=== PATIENT | male | born 1945 | race African-American/Black ===

== ENCOUNTER 2022-02-17 11:03 | Inpatient (IN) | payer MEDICARE, MEDICAID ==
[2022-02-17] VITALS (18 sets, daily range): BP systolic 74–128; BP diastolic 50–84
[~2022-02-17] VITALS: Ht 172.7 cm; Wt 71.7 kg
[2022-02-17] MEDS ORDERED: SODIUM CHLORIDE 0.9% 1000ML BAG (SEPSIS BOLUS) IV ONE (11:45)
[2022-02-17 12:06] LABS: CHLORIDE 117 mEq/L (98-107)
[2022-02-17 12:19] LABS: EOSINOPHILS % 1.3 % (0.0-5.0); LYMPHOCYTES % 13.9 % (20.0-50.0); MEAN CORPUSCULAR HEMOGLOBIN 27.8 pg (28.0-32.0); MEAN CORPUSCULAR VOLUME 90.2 fL (80.0-94.0); NEUTROPHILS % 83.8 % (40.0-76.0); PLATELET 68 x1000/uL (130-400); RED BLOOD CELL COUNT 1.79 mill/uL (4.7-6.1); RED CELL DISTRIBUTION WIDTH 19.6 % (11.6-14.6)
[2022-02-17 12:29] LABS: HEMATOCRIT. 16.1 % (42.0-52.0)
[2022-02-17] MEDS ORDERED: NOREPINEPHRINE 8MG/250ML PMX 250 ML IV ONE ×2 (12:30→16:40)
[2022-02-17 12:41] LABS: CLARITY URINE CLOUDY (CLEAR); COLOR URINE DARK YELLOW (YELLOW); KETONES URINE NEGATIVE (NEGATIVE); LEUKOCYTE ESTERASE URINE 2+ (NEGATIVE); NITRITE URINE NEGATIVE (NEGATIVE); OCCULT BLOOD URINE TRACE (NEGATIVE); PH URINE 5.5 (4.5-8.0); PROTEIN URINE 1+ (NEGATIVE); SPECIFIC GRAVITY URINE 1.023 (1.005-1.030)
[2022-02-17] MEDS ORDERED: DEXTROSE 50% WATER 50ML SYRINGE IV NR (12:45)
[2022-02-17] MEDS ORDERED: VANCOMYCIN 1G PREMIX 200 ML IV ONE (12:45)
[2022-02-17] MEDS ORDERED: PIPERACILLIN/TAZ 3.375G PREMIX 50 ML IV ONE (12:45)
[2022-02-17] MEDS ORDERED: DEXTROSE 5% WATER 1,000 ML IV ONE (12:45)
[2022-02-17] MEDS ORDERED: POTASSIUM CHLORIDE INJ 40 MEQ in DEXT 5% WATER 250 ML IV ONE (14:30)
[2022-02-17] MEDS ORDERED: DEXTROSE 50% WATER 50ML SYRINGE IV PRN ×2 (15:15→23:00)
[2022-02-17 15:41] LABS: BG BASE EXCESS -9.1 mmol/L (-2.0-2.0); BG CARBOXYHEMOGLOBIN 1.1 % (0.5-1.5); BG DEOXYHEMOGLOBIN 3.8 % (0.0-5.0); BG HCO3 ACT 13.4 mmol/L (22.0-26.0); BG METHEMOGLOBIN 0.3 % (0.0-1.5); BG OXYGEN SATURATION 96.1 % (92.0-98.5); BG OXYHEMOGLOBIN 94.8 % (94.0-97.0); BG PCO2 19.1 mmHg (35.0-45.0); BG PH 7.463 (7.350-7.450); BG PO2 79.2 mmHg (75.0-100.0)
[2022-02-17 15:43] LABS: HEMATOCRIT 16.1 % (42.0-52.0); HEMOGLOBIN 3.9 g/dL (14.0-18.0)
[2022-02-17] MEDS ORDERED: LEVOFLOXACIN 500MG PREMIX 100 ML IV SCH (16:00)
[2022-02-17 16:12] LABS: PHOSPHORUS 1.5 mg/dL (2.5-4.9)
[2022-02-17] MEDS: SODIUM BICARBONATE 100 MEQ in DEXTROSE 5% WATER 1,000 ML IV SCH (16:30)
[2022-02-17 16:42] LABS: FOLIC ACID (FOLATE) SERUM 3.1 ng/mL (>5.38)
[2022-02-17] MEDS: PANTOPRAZOLE SODIUM 40 MG/VIAL IV SCH (17:32)
[2022-02-17 18:20] LABS: HEMATOCRIT. 27.7 % (42.0-52.0); HEMOGLOBIN. 8.9 g/dL (14.0-18.0); MEAN CORPUSCULAR HEMOGLOBIN 27.9 pg (28.0-32.0); MEAN CORPUSCULAR VOLUME 86.4 fL (80.0-94.0); MEAN PLATELET VOLUME 8.7 fl (7.4-10.4); PLATELET 74 x1000/uL (130-400); RED CELL DISTRIBUTION WIDTH 18.1 % (11.6-14.6)
[2022-02-17] MEDS ORDERED: VANCOMYCIN 750MG PMX (XELLIA) 150 ML IV SCH (20:00)
[2022-02-17 20:13] LABS: PLATELET ESTIMATE DECREASED
[2022-02-17] MEDS ORDERED: IOHEXOL-300 100 ML BOTTLE ONE (20:20)
[2022-02-17] MEDS ORDERED: NOREPINEPHRINE 8 MG in DEXT 5% WATER 242 ML IV PRN (21:15)
[2022-02-17] MEDS ORDERED: TAZOBACTAM IV SCH (22:00)
[2022-02-17] MEDS ORDERED: WATER IV SCH (22:00)
[2022-02-17] MEDS ORDERED: DEXTROSE 5% IV SCH (22:00)
[2022-02-17] MEDS ORDERED: PIPERACILLIN/TAZOBACTAM 3.375GM/50ML PREMIX IV SCH (22:00)
[2022-02-17] MEDS ORDERED: PIPERACILLIN IV SCH (22:00)
[2022-02-17] MEDS: NOREPINEPHRINE 8 MG in DEXT 5% WATER 242 ML IV PRN (22:36)
[2022-02-17] MEDS: BLOOD SUGAR DIAGNOSTIC STRIP TEST SCH (23:10)
[2022-02-17 23:22] LABS: CHLORIDE 100 mEq/L (98-107)
[2022-02-17 23:26] LABS: BASOPHILS % 0.1 % (0.0-2.0); EOSINOPHILS % 0.1 % (0.0-5.0); HEMATOCRIT. 35.9 % (42.0-52.0); HEMOGLOBIN. 11.8 g/dL (14.0-18.0); LYMPHOCYTES % 9.6 % (20.0-50.0); MEAN CORPUSCULAR HEMOGLOBIN 29.4 pg (28.0-32.0); MEAN CORPUSCULAR VOLUME 89.7 fL (80.0-94.0); MONOCYTES % 2.6 % (2.0-8.0); NEUTROPHILS % 87.6 % (40.0-76.0); PLATELET 60 x1000/uL (130-400); RED CELL DISTRIBUTION WIDTH 16.9 % (11.6-14.6)
[2022-02-17] MEDS ORDERED: ONDANSETRON HCL 4MG/2ML INJ IV PRN (23:45)
[2022-02-17] MEDS ORDERED: MAGNESIUM 4 G PREMIX 100 ML IV NR (23:45)
[2022-02-17] MEDS ORDERED: CALCIUM GLUCONATE 1GM PREMIX 50 ML IV NR (23:45)
[2022-02-17] MEDS ORDERED: CALCIUM GLUCONATE 1,000 MG in DEXT 5% WATER 90 ML IV ONE (23:45)
[2022-02-18] VITALS (94 sets, daily range): BP systolic 69–131; BP diastolic 40–82
[2022-02-18] MEDS: NOREPINEPHRINE 8 MG in DEXT 5% WATER 242 ML IV PRN ×4 (03:05→17:37)
[2022-02-18] MEDS: BLOOD SUGAR DIAGNOSTIC STRIP TEST SCH ×4 (05:00→23:00)
[2022-02-18 05:09] LABS: BASOPHILS % 0.1 % (0.0-2.0); EOSINOPHILS % 0.3 % (0.0-5.0); HEMATOCRIT. 35.9 % (42.0-52.0); HEMOGLOBIN. 11.7 g/dL (14.0-18.0); LYMPHOCYTES % 16.7 % (20.0-50.0); MEAN CORPUSCULAR HEMOGLOBIN 28.9 pg (28.0-32.0); MEAN CORPUSCULAR VOLUME 88.8 fL (80.0-94.0); MEAN PLATELET VOLUME 9.1 fl (7.4-10.4); MONOCYTES % 2.6 % (2.0-8.0); NEUTROPHILS % 80.3 % (40.0-76.0); RED BLOOD CELL COUNT 4.04 mill/uL (4.7-6.1)
[2022-02-18 05:11] LABS: CHLORIDE 100 mEq/L (98-107)
[2022-02-18 05:19] LABS: CARCINO EMBRYONIC ANTIGEN 1.9 ng/ml; TOTAL IRON BINDING CAPACITY 126 ug/dL (250-450)
[2022-02-18] MEDS: SODIUM BICARBONATE 100 MEQ in DEXTROSE 5% WATER 1,000 ML IV SCH ×2 (06:10→18:39)
[2022-02-18] MEDS: PANTOPRAZOLE SODIUM 40 MG/VIAL IV SCH ×2 (08:49→17:08)
[2022-02-18] MEDS: FOLIC ACID/VITAMIN B COMP W-C TABLET PO SCH (08:49)
[2022-02-18] MEDS ORDERED: KCL 20MEQ/100ML PREMIX 100 ML IV NR (09:37)
[2022-02-18 09:55] LABS: PLATELET 44 x1000/uL (130-400)
[2022-02-18 09:57] LABS: PLATELET ESTIMATE MARKEDLY DECREASED
[2022-02-18] MEDS ORDERED: IPRATROPIUM/ALBUTEROL 0.5-3(2.5)MG/3ML NEB HHN PRN (10:15)
[2022-02-18] MEDS: MEROPENEM 1,000 MG in SODIUM CHLORIDE 0.9% 100 ML IV SCH ×2 (10:56→17:08)
[2022-02-18] MEDS ORDERED: POTASSIUM PHOS,M-BASIC-D-BASIC 20 MMOL in DEXT 5% WATER 243.3333 ML IV NR (12:00)
[2022-02-18 12:48] LABS: T4 FREE 0.56 ng/dL (0.76-1.46)
[2022-02-18] MEDS ORDERED: LACTATED RINGERS 1,000 ML IV NR (13:30)
[2022-02-18] MEDS: VANCOMYCIN 500MG PREMIX 100 ML IV SCH (13:58)
[2022-02-18] MEDS ORDERED: PIPERACILLIN/TAZOBACTAM 3.375G in DEXT 5% WATER 50ML IV SCH (14:00)
[2022-02-18] MEDS ORDERED: LACTATED RINGERS 1,000 ML IV ONE (14:30)
[2022-02-18] MEDS ORDERED: METOCLOPRAMIDE HCL 10MG/2ML VIAL IV NR (16:30)
[2022-02-18] MEDS ORDERED: BISACODYL 5MG TABLET PO NR (16:30)
[2022-02-18] MEDS ORDERED: SORBITOL 70% SOLN 30ML PO NR ×2 (17:00→21:00)
[2022-02-18] MEDS ORDERED: POTASSIUM CHLORIDE 20MEQ TABLET SR PO NR (20:00)
[2022-02-18 20:50] LABS: HEMATOCRIT 32.5 % (42.0-52.0); HEMOGLOBIN 10.9 g/dL (14.0-18.0)
[2022-02-18 21:02] LABS: CHLORIDE 98 mEq/L (98-107)
[2022-02-18 21:07] LABS: PHOSPHORUS 2.4 mg/dL (2.5-4.9)
[2022-02-19] VITALS (115 sets, daily range): BP systolic 59–107; BP diastolic 34–75
[2022-02-19] MEDS: VANCOMYCIN 500MG PREMIX 100 ML IV SCH (00:02)
[2022-02-19] MEDS: NOREPINEPHRINE 8 MG in DEXT 5% WATER 242 ML IV PRN ×2 (00:03→06:32)
[2022-02-19 01:08] LABS: HEMATOCRIT 32.1 % (42.0-52.0); HEMOGLOBIN 10.8 g/dL (14.0-18.0)
[2022-02-19] MEDS: MEROPENEM 1,000 MG in SODIUM CHLORIDE 0.9% 100 ML IV SCH ×3 (03:05→17:31)
[2022-02-19] MEDS: BLOOD SUGAR DIAGNOSTIC STRIP TEST SCH ×4 (05:00→22:01)
[2022-02-19 05:01] LABS: BASOPHILS % 0.1 % (0.0-2.0); EOSINOPHILS % 0.9 % (0.0-5.0); HEMOGLOBIN. 10.8 g/dL (14.0-18.0); LYMPHOCYTES % 26.5 % (20.0-50.0); MEAN CORPUSCULAR HEMOGLOBIN 29.4 pg (28.0-32.0); MEAN PLATELET VOLUME 9.1 fl (7.4-10.4); MONOCYTES % 2.4 % (2.0-8.0); NEUTROPHILS % 70.1 % (40.0-76.0); RED BLOOD CELL COUNT 3.67 mill/uL (4.7-6.1); RED CELL DISTRIBUTION WIDTH 17.5 % (11.6-14.6)
[2022-02-19 05:07] LABS: CHLORIDE 100 mEq/L (98-107)
[2022-02-19 05:14] LABS: PLATELET 24 x1000/uL (130-400)
[2022-02-19 05:16] LABS: PHOSPHORUS 1.3 mg/dL (2.5-4.9)
[2022-02-19 05:18] LABS: PROTHROMBIN TIME 19.9 sec (9.6-11.0)
[2022-02-19] MEDS: PANTOPRAZOLE SODIUM 40 MG/VIAL IV SCH ×2 (09:00→17:30)
[2022-02-19] MEDS ORDERED: DOBUTAMINE 250MG PREMIX 250 ML IV SCH (10:30)
[2022-02-19] MEDS: FOLIC ACID/VITAMIN B COMP W-C TABLET PO SCH (11:04)
[2022-02-19] MEDS: VANCOMYCIN 750MG PMX (XELLIA) 150 ML IV SCH ×2 (11:05→22:01)
[2022-02-19] MEDS: MIDODRINE HCL 5MG TABLET PO SCH ×2 (11:14→17:30)
[2022-02-19] MEDS ORDERED: SODIUM PHOS,M-BASIC-D-BASIC 30 MM in DEXT 5% WATER 500 ML IV NR (11:30)
[2022-02-19] MEDS: DOBUTAMINE 250 MG in DEXT 5% WATER 230 ML IV SCH (11:56)
[2022-02-19 12:56] LABS: HEMATOCRIT 31.4 % (42.0-52.0); HEMOGLOBIN 10.3 g/dL (14.0-18.0)
[2022-02-19] MEDS: PHENYLEPHRINE 100 MG in DEXT 5% WATER 240 ML IV PRN (13:20)
[2022-02-19 19:43] LABS: HEMATOCRIT 32.6 % (42.0-52.0); HEMOGLOBIN 10.7 g/dL (14.0-18.0)
[2022-02-19] MEDS: SODIUM BICARBONATE 100 MEQ in DEXTROSE 5% WATER 1,000 ML IV SCH (22:57)
[2022-02-20] VITALS (97 sets, daily range): BP systolic 64–113; BP diastolic 22–76
[2022-02-20 01:11] LABS: HEMATOCRIT 31.9 % (42.0-52.0); HEMOGLOBIN 10.6 g/dL (14.0-18.0)
[2022-02-20] MEDS: MEROPENEM 1,000 MG in SODIUM CHLORIDE 0.9% 100 ML IV SCH ×2 (01:19→09:53)
[2022-02-20] MEDS: BLOOD SUGAR DIAGNOSTIC STRIP TEST SCH ×4 (05:52→22:19)
[2022-02-20 06:00] LABS: BASOPHILS % 0.2 % (0.0-2.0); EOSINOPHILS % 2.2 % (0.0-5.0); HEMATOCRIT. 30.8 % (42.0-52.0); HEMOGLOBIN. 10.4 g/dL (14.0-18.0); MEAN CORPUSCULAR HEMOGLOBIN 29.5 pg (28.0-32.0); MEAN CORPUSCULAR VOLUME 87.9 fL (80.0-94.0); MEAN PLATELET VOLUME 10.2 fl (7.4-10.4); MONOCYTES % 2.3 % (2.0-8.0); NEUTROPHILS % 63.3 % (40.0-76.0); RED BLOOD CELL COUNT 3.51 mill/uL (4.7-6.1); RED CELL DISTRIBUTION WIDTH 17.1 % (11.6-14.6)
[2022-02-20 06:10] LABS: CHLORIDE 96 mEq/L (98-107)
[2022-02-20 06:18] LABS: PARTIAL THROMBOPLASTIN TIME 42.4 sec (23.4-31.0)
[2022-02-20 06:20] LABS: PHOSPHORUS 1.6 mg/dL (2.5-4.9); PLATELET 17 x1000/uL (130-400)
[2022-02-20] MEDS ORDERED: POTASSIUM CHLORIDE INJ 40 MEQ in DEXT 5% WATER 250 ML IV NR (09:00)
[2022-02-20] MEDS: CALCIUM 1250MG TABLET (500MG ELEMENTAL CALCIUM) PO SCH ×2 (09:02→16:30)
[2022-02-20] MEDS: PANTOPRAZOLE SODIUM 40 MG/VIAL IV SCH ×2 (09:02→16:31)
[2022-02-20] MEDS: FOLIC ACID/VITAMIN B COMP W-C TABLET PO SCH (09:02)
[2022-02-20] MEDS: MIDODRINE HCL 5MG TABLET PO SCH ×3 (09:02→16:30)
[2022-02-20] MEDS: DOBUTAMINE 250 MG in DEXT 5% WATER 230 ML IV SCH ×3 (09:53→22:29)
[2022-02-20] MEDS: PHENYLEPHRINE 100 MG in DEXT 5% WATER 240 ML IV PRN ×2 (09:54→22:36)
[2022-02-20] MEDS ORDERED: POTASSIUM PHOS,M-BASIC-D-BASIC 20 MMOL in DEXT 5% WATER 243.3333 ML IV NR (10:00)
[2022-02-20] MEDS: VANCOMYCIN 750MG PMX (XELLIA) 150 ML IV SCH ×2 (10:37→22:19)
[2022-02-20] MEDS: SODIUM BICARBONATE 100 MEQ in DEXTROSE 5% WATER 1,000 ML IV SCH ×2 (12:09→22:19)
[2022-02-20] MEDS ORDERED: CEFTRIAXONE 2 G PREMIX 50 ML IV SCH (15:15)
[2022-02-20] MEDS: CEFTRIAXONE 2 G in DEXTROSE 5% WATER 50 ML IV SCH (16:30)
[2022-02-20] MEDS: METRONIDAZOLE 500MG TABLET PO SCH ×2 (21:00→22:19)
[2022-02-21] VITALS (91 sets, daily range): BP systolic 54–120; BP diastolic 34–90
[2022-02-21] MEDS: BLOOD SUGAR DIAGNOSTIC STRIP TEST SCH ×4 (05:00→23:00)
[2022-02-21 07:24] LABS: EOSINOPHILS % 1.8 % (0.0-5.0); HEMATOCRIT. 29.8 % (42.0-52.0); HEMOGLOBIN. 9.8 g/dL (14.0-18.0); LYMPHOCYTES % 38.8 % (20.0-50.0); MEAN CORPUSCULAR HEMOGLOBIN 28.4 pg (28.0-32.0); MEAN PLATELET VOLUME 8.1 fl (7.4-10.4); MONOCYTES % 2.1 % (2.0-8.0); NEUTROPHILS % 56.3 % (40.0-76.0); PLATELET 72 x1000/uL (130-400); RED BLOOD CELL COUNT 3.43 mill/uL (4.7-6.1); RED CELL DISTRIBUTION WIDTH 16.9 % (11.6-14.6)
[2022-02-21] MEDS ORDERED: LORAZEPAM 2MG/ML CPJ IV PRN (07:30)
[2022-02-21 07:57] LABS: CHLORIDE 93 mEq/L (98-107)
[2022-02-21 08:09] LABS: PHOSPHORUS 2.1 mg/dL (2.5-4.9)
[2022-02-21] MEDS: DEXT 5%/0.45% NACL 1000ML 1,000 ML IV SCH ×2 (08:27→20:35)
[2022-02-21] MEDS: MIDODRINE HCL 5MG TABLET PO SCH ×3 (08:36→13:00)
[2022-02-21] MEDS: METRONIDAZOLE 500MG TABLET PO SCH ×2 (08:36→20:35)
[2022-02-21] MEDS: PANTOPRAZOLE SODIUM 40 MG/VIAL IV SCH ×2 (08:36→17:39)
[2022-02-21] MEDS: FOLIC ACID/VITAMIN B COMP W-C TABLET PO SCH (08:36)
[2022-02-21] MEDS: CALCIUM 1250MG TABLET (500MG ELEMENTAL CALCIUM) PO SCH ×2 (08:36→17:00)
[2022-02-21] MEDS ORDERED: POTASSIUM CHLORIDE 20MEQ/PACKET PO NR (08:45)
[2022-02-21] MEDS: PHENYLEPHRINE 100 MG in DEXT 5% WATER 240 ML IV PRN ×2 (10:30→20:07)
[2022-02-21] MEDS: VANCOMYCIN 750MG PMX (XELLIA) 150 ML IV SCH (10:30)
[2022-02-21] MEDS ORDERED: DEXTROSE 50% WATER 50ML SYRINGE IV ONE (12:00)
[2022-02-21] MEDS: DOBUTAMINE 250 MG in DEXT 5% WATER 230 ML IV SCH ×2 (13:57→20:14)
[2022-02-21 15:08] LABS: BG BASE EXCESS 0.7 mmol/L (-2.0-2.0); BG CARBOXYHEMOGLOBIN 0.6 % (0.5-1.5); BG DEOXYHEMOGLOBIN 5.3 % (0.0-5.0); BG HCO3 ACT 22.3 mmol/L (22.0-26.0); BG METHEMOGLOBIN 0.2 % (0.0-1.5); BG OXYGEN SATURATION 94.7 % (92.0-98.5); BG OXYHEMOGLOBIN 93.9 % (94.0-97.0); BG PCO2 25.9 mmHg (35.0-45.0); BG PH 7.553 (7.350-7.450); BG SAMPLE SITE LEFT RADIAL; BG TOTAL HEMOGLOBIN 9.7 g/dL (12.0-18.0); BG VENT MODE ROOM AIR
[2022-02-21] MEDS ORDERED: ALBUMIN HUMAN 12.5G/250ML (5%) IV NR (15:15)
[2022-02-21] MEDS: NOREPINEPHRINE 8 MG in DEXT 5% WATER 242 ML IV PRN (16:00)
[2022-02-21] MEDS: CEFTRIAXONE 2 G in DEXTROSE 5% WATER 50 ML IV SCH (17:39)
[2022-02-21 19:58] LABS: HEMATOCRIT 28.5 % (42.0-52.0); HEMOGLOBIN 9.6 g/dL (14.0-18.0)
[2022-02-21] MEDS: VANCOMYCIN 1GM PMX (XELLIA) 200 ML IV SCH (20:35)
[2022-02-22] VITALS (69 sets, daily range): BP systolic 60–119; BP diastolic 45–86
[2022-02-22] MEDS: BLOOD SUGAR DIAGNOSTIC STRIP TEST SCH ×4 (05:17→23:07)
[2022-02-22] MEDS: NOREPINEPHRINE 8 MG in DEXT 5% WATER 242 ML IV PRN (05:44)
[2022-02-22 06:13] LABS: BASOPHILS % 1.2 % (0.0-2.0); EOSINOPHILS % 2.2 % (0.0-5.0); HEMATOCRIT. 29.8 % (42.0-52.0); HEMOGLOBIN. 9.9 g/dL (14.0-18.0); MEAN CORPUSCULAR HEMOGLOBIN 29.2 pg (28.0-32.0); MEAN CORPUSCULAR VOLUME 87.5 fL (80.0-94.0); MEAN PLATELET VOLUME 8.1 fl (7.4-10.4); MONOCYTES % 2.7 % (2.0-8.0); NEUTROPHILS % 50.9 % (40.0-76.0); PLATELET 75 x1000/uL (130-400); RED CELL DISTRIBUTION WIDTH 17.1 % (11.6-14.6)
[2022-02-22 07:14] LABS: CHLORIDE 99 mEq/L (98-107); PHOSPHORUS 1.6 mg/dL (2.5-4.9)
[2022-02-22] MEDS: MIDODRINE HCL 5MG TABLET PO SCH ×4 (08:55→16:55)
[2022-02-22] MEDS: PANTOPRAZOLE SODIUM 40 MG/VIAL IV SCH ×2 (08:55→16:55)
[2022-02-22] MEDS: FOLIC ACID/VITAMIN B COMP W-C TABLET PO SCH ×2 (08:55→13:14)
[2022-02-22] MEDS: CALCIUM 1250MG TABLET (500MG ELEMENTAL CALCIUM) PO SCH ×3 (08:55→16:55)
[2022-02-22] MEDS: METRONIDAZOLE 500MG TABLET PO SCH ×3 (08:55→20:42)
[2022-02-22] MEDS: VANCOMYCIN 1GM PMX (XELLIA) 200 ML IV SCH (08:55)
[2022-02-22] MEDS ORDERED: POTASSIUM PHOS,M-BASIC-D-BASIC 20 MMOL in DEXT 5% WATER 250 ML IV SCH (10:00)
[2022-02-22] MEDS: DOBUTAMINE 250 MG in DEXT 5% WATER 230 ML IV SCH ×2 (10:32→23:51)
[2022-02-22] MEDS: DEXT 5%/0.45% NACL 1000ML 1,000 ML IV SCH ×2 (10:33→23:12)
[2022-02-22] MEDS: PHENYLEPHRINE 100 MG in DEXT 5% WATER 240 ML IV PRN ×2 (10:43→23:12)
[2022-02-22] MEDS: CEFTRIAXONE 2 G in DEXTROSE 5% WATER 50 ML IV SCH (16:55)
[2022-02-23] VITALS (96 sets, daily range): BP systolic 57–121; BP diastolic 42–89
[2022-02-23] MEDS: BLOOD SUGAR DIAGNOSTIC STRIP TEST SCH ×4 (05:17→23:00)
[2022-02-23 05:34] LABS: BASOPHILS % 2.4 % (0.0-2.0); EOSINOPHILS % 2.2 % (0.0-5.0); HEMATOCRIT. 27.4 % (42.0-52.0); HEMOGLOBIN. 9.3 g/dL (14.0-18.0); LYMPHOCYTES % 46.8 % (20.0-50.0); MEAN CORPUSCULAR HEMOGLOBIN 29.8 pg (28.0-32.0); MEAN CORPUSCULAR VOLUME 88.1 fL (80.0-94.0); MONOCYTES % 4.7 % (2.0-8.0); NEUTROPHILS % 43.9 % (40.0-76.0); RED BLOOD CELL COUNT 3.11 mill/uL (4.7-6.1); RED CELL DISTRIBUTION WIDTH 17.1 % (11.6-14.6)
[2022-02-23 06:18] LABS: CHLORIDE 101 mEq/L (98-107)
[2022-02-23 06:32] LABS: PLATELET 47 x1000/uL (130-400)
[2022-02-23] MEDS ORDERED: POTASSIUM CHLORIDE 20MEQ/PACKET NG NR (08:00)
[2022-02-23] MEDS: PHENYLEPHRINE 100 MG in DEXT 5% WATER 240 ML IV PRN ×3 (08:16→17:45)
[2022-02-23] MEDS: FOLIC ACID/VITAMIN B COMP W-C TABLET PO SCH (08:27)
[2022-02-23] MEDS: METRONIDAZOLE 500MG TABLET PO SCH ×2 (08:27→21:43)
[2022-02-23] MEDS: PANTOPRAZOLE SODIUM 40 MG/VIAL IV SCH ×2 (08:27→17:50)
[2022-02-23] MEDS: MIDODRINE HCL 5MG TABLET NG SCH ×2 (08:27→17:50)
[2022-02-23] MEDS: CALCIUM 1250MG TABLET (500MG ELEMENTAL CALCIUM) PO SCH ×2 (08:44→17:50)
[2022-02-23] MEDS: NOREPINEPHRINE 8 MG in DEXT 5% WATER 242 ML IV PRN ×3 (09:36→17:43)
[2022-02-23] MEDS ORDERED: POTASSIUM PHOS,M-BASIC-D-BASIC 30 MMOL in SODIUM CHLORIDE 0.9% 500 ML IV SCH (11:00)
[2022-02-23] MEDS: DOBUTAMINE 250 MG in DEXT 5% WATER 230 ML IV SCH ×3 (12:22→20:19)
[2022-02-23] MEDS: CEFTRIAXONE 2 G in DEXTROSE 5% WATER 50 ML IV SCH (17:50)
[2022-02-23] MEDS: NOREPINEPHRINE 32 MG in DEXT 5% WATER 218 ML IV PRN (21:14)
[2022-02-24] VITALS (97 sets, daily range): BP systolic 65–133; BP diastolic 46–88
[2022-02-24] MEDS: DOBUTAMINE 250 MG in DEXT 5% WATER 230 ML IV SCH ×3 (00:15→07:51)
[2022-02-24] MEDS: MIDODRINE HCL 5MG TABLET NG SCH ×3 (01:30→16:23)
[2022-02-24] MEDS: PHENYLEPHRINE 100 MG in DEXT 5% WATER 240 ML IV PRN ×4 (03:10→21:15)
[2022-02-24] MEDS: BLOOD SUGAR DIAGNOSTIC STRIP TEST SCH ×4 (05:19→23:00)
[2022-02-24 07:26] LABS: BASOPHILS % 2.2 % (0.0-2.0); EOSINOPHILS % 2.7 % (0.0-5.0); HEMATOCRIT. 24.7 % (42.0-52.0); HEMOGLOBIN. 8.4 g/dL (14.0-18.0); LYMPHOCYTES % 43.6 % (20.0-50.0); MEAN CORPUSCULAR HEMOGLOBIN 30.2 pg (28.0-32.0); MEAN CORPUSCULAR VOLUME 89.2 fL (80.0-94.0); MEAN PLATELET VOLUME 8.6 fl (7.4-10.4); MONOCYTES % 6.7 % (2.0-8.0); NEUTROPHILS % 44.8 % (40.0-76.0); RED BLOOD CELL COUNT 2.77 mill/uL (4.7-6.1); RED CELL DISTRIBUTION WIDTH 16.6 % (11.6-14.6)
[2022-02-24 07:35] LABS: CHLORIDE 102 mEq/L (98-107)
[2022-02-24 07:38] LABS: PLATELET 36 x1000/uL (130-400)
[2022-02-24 07:42] LABS: PHOSPHORUS 2.5 mg/dL (2.5-4.9)
[2022-02-24] MEDS ORDERED: DOBUTAMINE 250MG PREMIX 250 ML IV PRN ×2 (08:00→08:06)
[2022-02-24] MEDS: CALCIUM 1250MG TABLET (500MG ELEMENTAL CALCIUM) PO SCH ×2 (08:29→16:23)
[2022-02-24] MEDS: PANTOPRAZOLE SODIUM 40 MG/VIAL IV SCH ×2 (08:29→16:23)
[2022-02-24] MEDS: FOLIC ACID/VITAMIN B COMP W-C TABLET PO SCH (08:29)
[2022-02-24] MEDS: METRONIDAZOLE 500MG TABLET PO SCH ×2 (08:29→21:14)
[2022-02-24] MEDS ORDERED: MAGNESIUM 2 G PREMIX 50 ML IV NR (11:00)
[2022-02-24] MEDS: NOREPINEPHRINE 32 MG in DEXT 5% WATER 218 ML IV PRN (11:32)
[2022-02-24] MEDS: CEFTRIAXONE 2 G in DEXTROSE 5% WATER 50 ML IV SCH (16:23)
[2022-02-24] MEDS ORDERED: DOBUTAMINE 250 MG in DEXT 5% WATER 230 ML IV PRN (17:30)
[2022-02-24] MEDS: DOBUTAMINE 500MG PREMIX 250 ML IV PRN (18:02)
[2022-02-25] VITALS (83 sets, daily range): BP systolic 64–160; BP diastolic 42–108
[2022-02-25] MEDS: MIDODRINE HCL 5MG TABLET NG SCH ×3 (00:33→16:22)
[2022-02-25] MEDS: BLOOD SUGAR DIAGNOSTIC STRIP TEST SCH ×4 (05:00→23:59)
[2022-02-25 05:27] LABS: BASOPHILS % 3.9 % (0.0-2.0); EOSINOPHILS % 2.2 % (0.0-5.0); HEMATOCRIT. 23.3 % (42.0-52.0); HEMOGLOBIN. 7.8 g/dL (14.0-18.0); LYMPHOCYTES % 42.6 % (20.0-50.0); MEAN CORPUSCULAR HEMOGLOBIN 30.5 pg (28.0-32.0); MEAN CORPUSCULAR VOLUME 90.5 fL (80.0-94.0); MEAN PLATELET VOLUME 10.1 fl (7.4-10.4); NEUTROPHILS % 43.3 % (40.0-76.0); RED BLOOD CELL COUNT 2.58 mill/uL (4.7-6.1); RED CELL DISTRIBUTION WIDTH 16.7 % (11.6-14.6)
[2022-02-25 05:42] LABS: PLATELET 50 x1000/uL (130-400)
[2022-02-25 05:55] LABS: CHLORIDE 98 mEq/L (98-107)
[2022-02-25] MEDS: PHENYLEPHRINE 100 MG in DEXT 5% WATER 240 ML IV PRN ×2 (06:18→16:39)
[2022-02-25] MEDS: METRONIDAZOLE 500MG TABLET PO SCH ×2 (08:26→20:58)
[2022-02-25] MEDS: PANTOPRAZOLE SODIUM 40 MG/VIAL IV SCH ×2 (08:26→16:22)
[2022-02-25] MEDS: FOLIC ACID/VITAMIN B COMP W-C TABLET PO SCH (08:26)
[2022-02-25] MEDS: CALCIUM 1250MG TABLET (500MG ELEMENTAL CALCIUM) PO SCH ×2 (08:26→16:22)
[2022-02-25] MEDS ORDERED: LEVOTHYROXINE SODIUM 25MCG TABLET PO NR (10:45)
[2022-02-25 14:54] LABS: HEMATOCRIT 26.4 % (42.0-52.0); HEMOGLOBIN 8.9 g/dL (14.0-18.0)
[2022-02-25] MEDS: CEFTRIAXONE 2 G in DEXTROSE 5% WATER 50 ML IV SCH (16:21)
[2022-02-25] MEDS: NOREPINEPHRINE 32 MG in DEXT 5% WATER 218 ML IV PRN (16:23)
[2022-02-25 18:21] LABS: HEMATOCRIT 30.7 % (42.0-52.0); HEMOGLOBIN 10.2 g/dL (14.0-18.0)
[2022-02-25] MEDS: DOBUTAMINE 500MG PREMIX 250 ML IV PRN (21:51)
[2022-02-26] VITALS (155 sets, daily range): BP systolic 67–132; BP diastolic 41–82
[2022-02-26] MEDS: PHENYLEPHRINE 100 MG in DEXT 5% WATER 240 ML IV PRN ×3 (00:37→21:33)
[2022-02-26] MEDS: MIDODRINE HCL 5MG TABLET NG SCH ×2 (00:38→08:49)
[2022-02-26 00:46] LABS: HEMOGLOBIN 7.9 g/dL (14.0-18.0)
[2022-02-26] MEDS: BLOOD SUGAR DIAGNOSTIC STRIP TEST SCH ×3 (05:00→17:00)
[2022-02-26 05:37] LABS: BASOPHILS % 2.2 % (0.0-2.0); EOSINOPHILS % 2.5 % (0.0-5.0); HEMATOCRIT. 23.8 % (42.0-52.0); HEMOGLOBIN. 8.1 g/dL (14.0-18.0); LYMPHOCYTES % 43.8 % (20.0-50.0); MEAN CORPUSCULAR HEMOGLOBIN 31.3 pg (28.0-32.0); MEAN CORPUSCULAR VOLUME 91.7 fL (80.0-94.0); MEAN PLATELET VOLUME 10.1 fl (7.4-10.4); NEUTROPHILS % 44.5 % (40.0-76.0); PLATELET 61 x1000/uL (130-400); RED BLOOD CELL COUNT 2.59 mill/uL (4.7-6.1); RED CELL DISTRIBUTION WIDTH 16.8 % (11.6-14.6)
[2022-02-26 06:43] LABS: CHLORIDE 97 mEq/L (98-107)
[2022-02-26] MEDS: LEVOTHYROXINE SODIUM 25MCG TABLET PO SCH (08:49)
[2022-02-26] MEDS: CALCIUM 1250MG TABLET (500MG ELEMENTAL CALCIUM) PO SCH ×2 (08:49→17:00)
[2022-02-26] MEDS: PANTOPRAZOLE SODIUM 40 MG/VIAL IV SCH ×2 (08:49→17:00)
[2022-02-26] MEDS: FOLIC ACID/VITAMIN B COMP W-C TABLET PO SCH (08:49)
[2022-02-26 12:23] LABS: HEMATOCRIT 21.1 % (42.0-52.0); HEMOGLOBIN 7.3 g/dL (14.0-18.0)
[2022-02-26] MEDS: NOREPINEPHRINE 32 MG in DEXT 5% WATER 218 ML IV PRN (12:45)
[2022-02-26] MEDS: CEFTRIAXONE 2 G in DEXTROSE 5% WATER 50 ML IV SCH (17:00)
[2022-02-27] VITALS (95 sets, daily range): BP systolic 82–151; BP diastolic 27–93
[2022-02-27] MEDS: MIDODRINE HCL 5MG TABLET NG SCH (08:59)
[2022-02-27] MEDS: PANTOPRAZOLE SODIUM 40 MG/VIAL IV SCH ×2 (08:59→16:38)
[2022-02-27] MEDS: CALCIUM 1250MG TABLET (500MG ELEMENTAL CALCIUM) PO SCH ×2 (08:59→16:38)
[2022-02-27] MEDS: LEVOTHYROXINE SODIUM 25MCG TABLET PO SCH (08:59)
[2022-02-27] MEDS: FOLIC ACID/VITAMIN B COMP W-C TABLET PO SCH (08:59)
[2022-02-27] MEDS: DOBUTAMINE 250 MG PREMIX 250 ML IV PRN (09:18)
[2022-02-27] MEDS: PHENYLEPHRINE 100 MG in DEXT 5% WATER 240 ML IV PRN ×3 (10:22→21:29)
[2022-02-27] MEDS: BLOOD SUGAR DIAGNOSTIC STRIP TEST SCH ×3 (11:00→21:26)
[2022-02-27 12:51] LABS: BASOPHILS % 1.1 % (0.0-2.0); EOSINOPHILS % 1.1 % (0.0-5.0); HEMATOCRIT. 22.8 % (42.0-52.0); HEMOGLOBIN. 7.7 g/dL (14.0-18.0); LYMPHOCYTES % 33.8 % (20.0-50.0); MEAN CORPUSCULAR HEMOGLOBIN 30.4 pg (28.0-32.0); MEAN CORPUSCULAR VOLUME 89.6 fL (80.0-94.0); MEAN PLATELET VOLUME 9.8 fl (7.4-10.4); PLATELET 102 x1000/uL (130-400); RED BLOOD CELL COUNT 2.55 mill/uL (4.7-6.1); RED CELL DISTRIBUTION WIDTH 16.6 % (11.6-14.6)
[2022-02-27 13:30] LABS: CHLORIDE 100 mEq/L (98-107)
[2022-02-27] MEDS: MIDODRINE HCL 5MG TABLET PO SCH ×2 (14:45→21:26)
[2022-02-27] MEDS ORDERED: [UNRECOGNIZED DRUG - REMARK] XX SCH (15:00)
[2022-02-27] MEDS: CEFTRIAXONE 2 G in DEXTROSE 5% WATER 50 ML IV SCH (16:42)
[2022-02-27] MEDS: METRONIDAZOLE 500MG TABLET PO SCH (21:26)
[2022-02-28] VITALS (100 sets, daily range): BP systolic 82–144; BP diastolic 45–92
[2022-02-28] MEDS: PHENYLEPHRINE 100 MG in DEXT 5% WATER 240 ML IV PRN (03:56)
[2022-02-28] MEDS: BLOOD SUGAR DIAGNOSTIC STRIP TEST SCH ×4 (05:42→23:02)
[2022-02-28] MEDS: MIDODRINE HCL 5MG TABLET PO SCH ×3 (05:42→23:06)
[2022-02-28 05:46] LABS: BASOPHILS % 1.4 % (0.0-2.0); EOSINOPHILS % 1.6 % (0.0-5.0); HEMOGLOBIN. 7.3 g/dL (14.0-18.0); LYMPHOCYTES % 34.8 % (20.0-50.0); MEAN CORPUSCULAR HEMOGLOBIN 30.7 pg (28.0-32.0); MEAN CORPUSCULAR VOLUME 88.6 fL (80.0-94.0); MEAN PLATELET VOLUME 9.5 fl (7.4-10.4); MONOCYTES % 7.4 % (2.0-8.0); NEUTROPHILS % 54.8 % (40.0-76.0); PLATELET 89 x1000/uL (130-400); RED BLOOD CELL COUNT 2.37 mill/uL (4.7-6.1)
[2022-02-28 06:46] LABS: CHLORIDE 104 mEq/L (98-107)
[2022-02-28] MEDS ORDERED: POTASSIUM CHLORIDE 20MEQ/PACKET PO NR (08:00)
[2022-02-28] MEDS: FOLIC ACID/VITAMIN B COMP W-C TABLET PO SCH (08:52)
[2022-02-28] MEDS: LEVOTHYROXINE SODIUM 25MCG TABLET PO SCH (08:52)
[2022-02-28] MEDS: CALCIUM 1250MG TABLET (500MG ELEMENTAL CALCIUM) PO SCH (08:52)
[2022-02-28] MEDS: METRONIDAZOLE 500MG TABLET PO SCH ×2 (08:52→23:05)
[2022-02-28] MEDS: PANTOPRAZOLE SODIUM 40 MG/VIAL IV SCH ×2 (08:52→18:36)
[2022-02-28] MEDS: DOBUTAMINE 250 MG PREMIX 250 ML IV PRN (18:07)
[2022-02-28] MEDS: CEFTRIAXONE 2 G in DEXTROSE 5% WATER 50 ML IV SCH (18:36)
[2022-02-28] MEDS: METOCLOPRAMIDE HCL 10MG/2ML VIAL IV SCH (18:36)
[2022-03-01] VITALS (88 sets, daily range): BP systolic 83–144; BP diastolic 45–100
[2022-03-01] MEDS: BLOOD SUGAR DIAGNOSTIC STRIP TEST SCH ×4 (05:00→23:05)
[2022-03-01 05:58] LABS: BASOPHILS % 1.5 % (0.0-2.0); EOSINOPHILS % 2.2 % (0.0-5.0); HEMATOCRIT. 24.6 % (42.0-52.0); HEMOGLOBIN. 8.4 g/dL (14.0-18.0); MEAN CORPUSCULAR HEMOGLOBIN 31.6 pg (28.0-32.0); MEAN CORPUSCULAR VOLUME 92.9 fL (80.0-94.0); MEAN PLATELET VOLUME 9.3 fl (7.4-10.4); MONOCYTES % 7.5 % (2.0-8.0); NEUTROPHILS % 55.8 % (40.0-76.0); PLATELET 83 x1000/uL (130-400); RED BLOOD CELL COUNT 2.65 mill/uL (4.7-6.1); RED CELL DISTRIBUTION WIDTH 17.1 % (11.6-14.6)
[2022-03-01] MEDS: METOCLOPRAMIDE HCL 10MG/2ML VIAL IV SCH ×4 (06:25→17:58)
[2022-03-01] MEDS: MIDODRINE HCL 5MG TABLET PO SCH ×3 (06:25→21:53)
[2022-03-01 07:01] LABS: CHLORIDE 104 mEq/L (98-107)
[2022-03-01] MEDS: LEVOTHYROXINE SODIUM 25MCG TABLET PO SCH (08:49)
[2022-03-01] MEDS: PANTOPRAZOLE SODIUM 40 MG/VIAL IV SCH ×2 (08:50→17:57)
[2022-03-01] MEDS: METRONIDAZOLE 500MG TABLET PO SCH ×2 (08:50→21:52)
[2022-03-01] MEDS: CALCIUM 1250MG TABLET (500MG ELEMENTAL CALCIUM) PO SCH ×2 (08:50→17:58)
[2022-03-01] MEDS: FOLIC ACID/VITAMIN B COMP W-C TABLET PO SCH (08:50)
[2022-03-01] MEDS: CEFTRIAXONE 2 G in DEXTROSE 5% WATER 50 ML IV SCH (17:58)
[2022-03-02] VITALS (36 sets, daily range): BP systolic 94–145; BP diastolic 48–94
[2022-03-02] MEDS: METOCLOPRAMIDE HCL 10MG/2ML VIAL IV SCH ×3 (00:06→13:28)
[2022-03-02] MEDS: BLOOD SUGAR DIAGNOSTIC STRIP TEST SCH ×2 (05:00→11:00)
[2022-03-02] MEDS: MIDODRINE HCL 5MG TABLET PO SCH ×2 (06:10→13:44)
[2022-03-02] MEDS: PANTOPRAZOLE SODIUM 40 MG/VIAL IV SCH (09:01)
[2022-03-02] MEDS: CALCIUM 1250MG TABLET (500MG ELEMENTAL CALCIUM) PO SCH (09:01)
[2022-03-02] MEDS: LEVOTHYROXINE SODIUM 25MCG TABLET PO SCH (09:01)
[2022-03-02] MEDS: FOLIC ACID/VITAMIN B COMP W-C TABLET PO SCH (09:01)
[2022-03-02] MEDS: METRONIDAZOLE 500MG TABLET PO SCH (09:04)
[2022-03-02 11:38] LABS: BASOPHILS % 2.9 % (0.0-2.0); EOSINOPHILS % 2.4 % (0.0-5.0); HEMATOCRIT. 23.5 % (42.0-52.0); HEMOGLOBIN. 8.2 g/dL (14.0-18.0); LYMPHOCYTES % 27.1 % (20.0-50.0); MEAN CORPUSCULAR HEMOGLOBIN 31.7 pg (28.0-32.0); MEAN CORPUSCULAR VOLUME 91.1 fL (80.0-94.0); MEAN PLATELET VOLUME 9.6 fl (7.4-10.4); MONOCYTES % 8.5 % (2.0-8.0); NEUTROPHILS % 59.1 % (40.0-76.0); PLATELET 127 x1000/uL (130-400); RED BLOOD CELL COUNT 2.58 mill/uL (4.7-6.1); RED CELL DISTRIBUTION WIDTH 17.2 % (11.6-14.6)
[2022-03-02 12:08] LABS: CHLORIDE 102 mEq/L (98-107)
== END 2022-03-02 18:15 | DRG 871 ==
LOC: ER 11:03 → EDBEDREQ 13:17 → CVICU 13:44 → EDBEDREQ 13:46 → ENRESERV 19:02
PROVIDERS: ADMIT Internal Medicine Nephrology; ATTEND Internal Medicine Nephrology
PROC: 30233N1 Transfusion of Nonautologous Red Blood Cells into Peripheral Vein, Percutaneous Approach (ICD-10-PCS; 2022-02-17)
PROC: 06HY33Z Insertion of Infusion Device into Lower Vein, Percutaneous Approach (ICD-10-PCS; 2022-02-17)
PROC: B54BZZA Ultrasonography of Right Lower Extremity Veins, Guidance (ICD-10-PCS; 2022-02-17)
PROC: 02HV33Z Insertion of Infusion Device into Superior Vena Cava, Percutaneous Approach (ICD-10-PCS; principal; 2022-02-20)
PROC: B548ZZA Ultrasonography of Superior Vena Cava, Guidance (ICD-10-PCS; 2022-02-20)
PROC: 5A1935Z Respiratory Ventilation, Less than 24 Consecutive Hours (ICD-10-PCS; 2022-02-20)
DX: A41.59 Other Gram-negative sepsis (principal); D65 Disseminated intravascular coagulation [defibrination syndrome]; E43 Unspecified severe protein-calorie malnutrition; R57.1 Hypovolemic shock; R65.21 Severe sepsis with septic shock; G92.8 Other toxic encephalopathy; D61.818 Other pancytopenia; I42.9 Cardiomyopathy, unspecified; E87.20 Acidosis, unspecified; E22.2 Syndrome of inappropriate secretion of antidiuretic hormone; K56.600 Partial intestinal obstruction, unspecified as to cause; R64 Cachexia; R18.8 Other ascites; N30.00 Acute cystitis without hematuria; E16.2 Hypoglycemia, unspecified; E83.39 Other disorders of phosphorus metabolism; E83.51 Hypocalcemia; Z20.822 Contact with and (suspected) exposure to COVID-19; E83.42 Hypomagnesemia; E87.6 Hypokalemia; E88.09 Other disorders of plasma-protein metabolism, not elsewhere classified; I10 Essential (primary) hypertension; K76.0 Fatty (change of) liver, not elsewhere classified; R62.7 Adult failure to thrive; D50.9 Iron deficiency anemia, unspecified; E03.9 Hypothyroidism, unspecified; E53.8 Deficiency of other specified B group vitamins; F03.90 Unspecified dementia, unspecified severity, without behavioral disturbance, psychotic disturbance, mood disturbance, and anxiety; H91.10 Presbycusis, unspecified ear; F10.10 Alcohol abuse, uncomplicated; I25.10 Atherosclerotic heart disease of native coronary artery without angina pectoris; J44.9 Chronic obstructive pulmonary disease, unspecified; B96.1 Klebsiella pneumoniae [K. pneumoniae] as the cause of diseases classified elsewhere; M81.0 Age-related osteoporosis without current pathological fracture; K76.9 Liver disease, unspecified; F17.210 Nicotine dependence, cigarettes, uncomplicated; N28.9 Disorder of kidney and ureter, unspecified; R13.10 Dysphagia, unspecified; Z86.711 Personal history of pulmonary embolism; Z59.00 Homelessness unspecified; Z66 Do not resuscitate; Z78.1 Physical restraint status; Z95.828 Presence of other vascular implants and grafts; Z96.643 Presence of artificial hip joint, bilateral; Z68.24 Body mass index [BMI] 24.0-24.9, adult
CPT/HCPCS: 36415; 36573; 36600; 71045; 74018; 74177; 76700; 80048; 80053; 80061; 80202; 81003; 82105; 82270; 82330; 82375; 82378; 82533; 82607; 82728; 82746; 82805; 82962; 83540; 83550; 83605; 83735; 84100; 84145; 84439; 84443; 84484; 85014; 85018; 85025; 85044; 85049; 85384; 86301; 86304; 86850; 86900; 86920; 87077; 87186; 87426; 93005; 93306; 99291; A6261; C1725; C9113; C9803; J0610; J0696; J1250; J1956; J2060; J2185; J2370; J2543; J2765; J3370; J3475; J3480; J3490; J7030; J7040; J7050; J7060; J7070; P9016; P9034; P9041; Q9967; A4315

== ENCOUNTER 2022-03-20 17:12 | Inpatient (IN) | payer MEDICARE, MEDICAID ==
[~2022-03-20] VITALS: Ht 172.7 cm; Wt 79.8 kg
[2022-03-20 20:30] VITALS: BP 115/77
[2022-03-21] VITALS: BP 109/75
[2022-03-21 08:00] VITALS: BP 112/71
[2022-03-21] MEDS ORDERED: HYDROCODONE/ACETAMINOPHEN 5/325MG TABLET PO PRN (09:00)
[2022-03-21] MEDS ORDERED: METOPROLOL TARTRATE 25MG TABLET PO SCH (09:00)
[2022-03-21] MEDS ORDERED: PIPERACILLIN/TAZOBACTAM 3.375G in DEXT 5% WATER 50ML IV NR (11:00)
[2022-03-21 12:00] VITALS: BP 131/80
[2022-03-21] MEDS: CITRIC ACID/SODIUM CITRATE SOLN 15ML UDC PO SCH ×3 (13:48→17:00)
[2022-03-21] MEDS: PANTOPRAZOLE SODIUM 40 MG/VIAL IV SCH (13:49)
[2022-03-21] MEDS: ZINC SULFATE 220 MG ( 50 ) CAPSULE PO SCH (13:50)
[2022-03-21 16:00] VITALS: BP 119/84
[2022-03-21 16:01] LABS: INR 1.1; PARTIAL THROMBOPLASTIN TIME 27.8 sec (23.4-31.0); PROTHROMBIN TIME 11.3 sec (9.6-11.0)
[2022-03-21 16:14] LABS: CHLORIDE 107 mEq/L (98-107)
[2022-03-21 17:08] LABS: BG BASE EXCESS 1.5 mmol/L (-2.0-2.0); BG CARBOXYHEMOGLOBIN 1.6 % (0.5-1.5); BG DEOXYHEMOGLOBIN 3.9 % (0.0-5.0); BG FRACTION INSPIRED OXYGEN 21; BG HCO3 ACT 24.1 mmol/L (22.0-26.0); BG METHEMOGLOBIN 0.3 % (0.0-1.5); BG OXYHEMOGLOBIN 94.2 % (94.0-97.0); BG PCO2 30.4 mmHg (35.0-45.0); BG PH 7.517 (7.350-7.450); BG PO2 78.4 mmHg (75.0-100.0); BG SAMPLE SITE LEFT BRACHIAL; BG TOTAL HEMOGLOBIN 8.9 g/dL (12.0-18.0); BG VENT MODE ROOM AIR
[2022-03-21] MEDS ORDERED: IOHEXOL-300 100 ML BOTTLE ONE (17:19)
[2022-03-21] MEDS ORDERED: NALOXONE HCL 0.4MG/ML VIAL IV PRN (18:45)
[2022-03-21 19:42] LABS: BASOPHILS % 0.7 % (0.0-2.0); EOSINOPHILS % 1.1 % (0.0-5.0); HEMATOCRIT. 27.6 % (42.0-52.0); HEMOGLOBIN. 8.9 g/dL (14.0-18.0); LYMPHOCYTES % 16.1 % (20.0-50.0); MEAN CORPUSCULAR HEMOGLOBIN 30.4 pg (28.0-32.0); MONOCYTES % 5.4 % (2.0-8.0); NEUTROPHILS % 76.7 % (40.0-76.0); PLATELET 376 x1000/uL (130-400); RED BLOOD CELL COUNT 2.93 mill/uL (4.7-6.1); RED CELL DISTRIBUTION WIDTH 19.3 % (11.6-14.6)
[2022-03-21 20:00] VITALS: BP 112/77
[2022-03-21] MEDS: PIPERACILLIN/TAZOBACTAM 3.375 G in DEXTROSE 5% WATER 50 ML IV SCH (20:06)
[2022-03-21] MEDS: CARVEDILOL 3.125 MG TABLET PO SCH (20:07)
[2022-03-21] MEDS: IPRATROPIUM BROMIDE (0.02%) 0.5MG/2.5ML NEB HHN SCH (22:10)
[2022-03-22] VITALS: BP 103/63
[2022-03-22] MEDS: IPRATROPIUM BROMIDE (0.02%) 0.5MG/2.5ML NEB HHN SCH ×4 (03:40→21:16)
[2022-03-22 04:00] VITALS: BP 97/65
[2022-03-22] MEDS: PIPERACILLIN/TAZOBACTAM 3.375 G in DEXTROSE 5% WATER 50 ML IV SCH ×3 (05:02→21:35)
[2022-03-22] MEDS: LEVOTHYROXINE SODIUM 25MCG TABLET PO SCH (07:20)
[2022-03-22 07:50] LABS: CHLORIDE 106 mEq/L (98-107)
[2022-03-22 07:58] LABS: PHOSPHORUS 3.6 mg/dL (2.5-4.9)
[2022-03-22 08:00] VITALS: BP 114/74
[2022-03-22] MEDS: CITRIC ACID/SODIUM CITRATE SOLN 15ML UDC PO SCH ×4 (08:01→17:00)
[2022-03-22] MEDS: ZINC SULFATE 220 MG ( 50 ) CAPSULE PO SCH (08:01)
[2022-03-22] MEDS: CARVEDILOL 3.125 MG TABLET PO SCH ×2 (08:01→20:11)
[2022-03-22] MEDS: PANTOPRAZOLE SODIUM 40 MG/VIAL IV SCH (09:09)
[2022-03-22 11:22] LABS: BASOPHILS % 0.7 % (0.0-2.0); EOSINOPHILS % 1.6 % (0.0-5.0); HEMATOCRIT. 27.5 % (42.0-52.0); HEMOGLOBIN. 8.9 g/dL (14.0-18.0); LYMPHOCYTES % 17.1 % (20.0-50.0); MEAN CORPUSCULAR HEMOGLOBIN 29.9 pg (28.0-32.0); MEAN CORPUSCULAR VOLUME 91.9 fL (80.0-94.0); MEAN PLATELET VOLUME 8.2 fl (7.4-10.4); MONOCYTES % 5.2 % (2.0-8.0); NEUTROPHILS % 75.4 % (40.0-76.0); PLATELET 449 x1000/uL (130-400); RED BLOOD CELL COUNT 2.99 mill/uL (4.7-6.1); RED CELL DISTRIBUTION WIDTH 18.9 % (11.6-14.6)
[2022-03-22 11:30] VITALS: BP 113/70
[2022-03-22] MEDS ORDERED: SUCCINYLCHOLINE CHLORIDE 200MG/10ML IV ONE (11:59)
[2022-03-22] MEDS ORDERED: ETOMIDATE 2MG/ML 10ML VIAL IV ONE (11:59)
[2022-03-22] MEDS ORDERED: FENTANYL CITRATE/PF 50MCG/ML 2ML VIAL ONE (12:16)
[2022-03-22] MEDS ORDERED: MIDAZOLAM HCL 2 MG/2 ML VIAL ONE (12:16)
[2022-03-22] MEDS ORDERED: PROPOFOL 200MG/20ML VIAL IV ONE (12:25)
[2022-03-22] MEDS ORDERED: HYDROMORPHONE HCL/PF 2MG/ML CPJ IV PRN (12:30)
[2022-03-22] MEDS ORDERED: MEPERIDINE HCL/PF 25MG/ML CPJ IV PRN (12:30)
[2022-03-22] MEDS ORDERED: ONDANSETRON HCL 4MG/2ML INJ IV PRN (12:30)
[2022-03-22] MEDS ORDERED: LABETALOL 5MG/ML SYR 20 MG/4 ML SYRINGE IV PRN (12:30)
[2022-03-22 16:45] VITALS: BP 111/77
[2022-03-22 20:00] VITALS: BP 101/68
[2022-03-22 20:34] LABS: BASOPHILS % 0.9 % (0.0-2.0); EOSINOPHILS % 1.1 % (0.0-5.0); HEMATOCRIT. 33.2 % (42.0-52.0); HEMOGLOBIN. 9.8 g/dL (14.0-18.0); LYMPHOCYTES % 17.3 % (20.0-50.0); MEAN CORPUSCULAR HEMOGLOBIN 29.6 pg (28.0-32.0); MEAN CORPUSCULAR VOLUME 100.1 fL (80.0-94.0); MEAN PLATELET VOLUME 8.5 fl (7.4-10.4); MONOCYTES % 9.6 % (2.0-8.0); NEUTROPHILS % 71.1 % (40.0-76.0); PLATELET 499 x1000/uL (130-400); RED BLOOD CELL COUNT 3.32 mill/uL (4.7-6.1); RED CELL DISTRIBUTION WIDTH 20.6 % (11.6-14.6)
[2022-03-22 20:43] LABS: CHLORIDE 108 mEq/L (98-107)
[2022-03-23] VITALS (33 sets, daily range): BP systolic 76–123; BP diastolic 47–90
[2022-03-23] MEDS: IPRATROPIUM BROMIDE (0.02%) 0.5MG/2.5ML NEB HHN SCH ×5 (01:29→19:46)
[2022-03-23] MEDS: PIPERACILLIN/TAZOBACTAM 3.375 G in DEXTROSE 5% WATER 50 ML IV SCH ×3 (05:29→22:35)
[2022-03-23 06:01] LABS: BASOPHILS % 0.9 % (0.0-2.0); EOSINOPHILS % 1.1 % (0.0-5.0); HEMOGLOBIN. 8.3 g/dL (14.0-18.0); LYMPHOCYTES % 14.3 % (20.0-50.0); MEAN CORPUSCULAR HEMOGLOBIN 31.3 pg (28.0-32.0); MEAN CORPUSCULAR VOLUME 93.9 fL (80.0-94.0); MEAN PLATELET VOLUME 8.2 fl (7.4-10.4); MONOCYTES % 4.9 % (2.0-8.0); NEUTROPHILS % 78.8 % (40.0-76.0); PLATELET 488 x1000/uL (130-400); RED BLOOD CELL COUNT 2.66 mill/uL (4.7-6.1); RED CELL DISTRIBUTION WIDTH 19.2 % (11.6-14.6)
[2022-03-23] MEDS: LEVOTHYROXINE SODIUM 25MCG TABLET PO SCH (06:21)
[2022-03-23] MEDS: DEXT 5%/0.45% NACL 1000ML 1,000 ML IV SCH ×2 (08:17→22:41)
[2022-03-23] MEDS: PANTOPRAZOLE SODIUM 40 MG/VIAL IV SCH (08:17)
[2022-03-23 08:18] LABS: CHLORIDE 107 mEq/L (98-107)
[2022-03-23] MEDS ORDERED: POTASSIUM CHLORIDE INJ 40 MEQ in DEXT 5% WATER 250 ML IV ONE (08:30)
[2022-03-23 08:32] LABS: PHOSPHORUS 3.7 mg/dL (2.5-4.9)
[2022-03-23] MEDS: CITRIC ACID/SODIUM CITRATE SOLN 15ML UDC PO SCH ×3 (08:49→17:00)
[2022-03-23] MEDS: CARVEDILOL 3.125 MG TABLET PO SCH ×2 (08:49→20:42)
[2022-03-23] MEDS: ZINC SULFATE 220 MG ( 50 ) CAPSULE PO SCH (08:50)
[2022-03-23] MEDS ORDERED: BUPIVACAINE HCL/PF 0.5% (5MG/ML) 10ML ONE (10:45)
[2022-03-23] MEDS ORDERED: POLYMYXIN B SULFATE 500000 UNITS/VIAL ONE ×2 (10:45→14:27)
[2022-03-23] MEDS ORDERED: LIDOCAINE HCL 1% 10 MG/ML 10ML VIAL ONE (10:45)
[2022-03-23] MEDS ORDERED: KCL 20MEQ/100ML X 2 FOR TOTAL KCL 40MEQ/200ML IV SCH (11:00)
[2022-03-23] MEDS ORDERED: ONDANSETRON HCL 4MG/2ML INJ ONE (11:55)
[2022-03-23] MEDS ORDERED: DEXAMETHASONE 4MG/ML 1ML VIAL ONE (11:55)
[2022-03-23] MEDS ORDERED: ETOMIDATE 2MG/ML 10ML VIAL IV ONE (11:55)
[2022-03-23] MEDS ORDERED: SUCCINYLCHOLINE CHLORIDE 200MG/10ML IV ONE (11:55)
[2022-03-23] MEDS ORDERED: ROCURONIUM BROMIDE 10MG/ML VIAL 5ML IV ONE (11:55)
[2022-03-23] MEDS ORDERED: NEOSTIGMINE METHYLSULFATE 1MG/ML 10 ML VIAL ONE (11:55)
[2022-03-23] MEDS ORDERED: FENTANYL CITRATE/PF 50MCG/ML 2ML VIAL ONE (11:56)
[2022-03-23] MEDS ORDERED: GLYCOPYRROLATE 0.2 MG/ML 2ML VIAL ONE (11:56)
[2022-03-23] MEDS ORDERED: MIDAZOLAM HCL 2 MG/2 ML VIAL ONE (11:56)
[2022-03-23] MEDS ORDERED: LABETALOL 5MG/ML SYR 20 MG/4 ML SYRINGE IV PRN ×2 (12:45)
[2022-03-23] MEDS ORDERED: ONDANSETRON HCL 4MG/2ML INJ IV PRN ×2 (12:45)
[2022-03-23] MEDS ORDERED: HYDROMORPHONE HCL/PF 2MG/ML CPJ IV PRN ×2 (12:45)
[2022-03-23] MEDS ORDERED: MEPERIDINE HCL/PF 25MG/ML CPJ IV PRN ×2 (12:45)
[2022-03-23] MEDS ORDERED: PHENYLEPHRINE HCL 10 MG/ML 1ML (IV VIAL) IV ONE ×4 (13:02→14:39)
[2022-03-23] MEDS ORDERED: ALBUMIN HUMAN 12.5G/250ML (5%) IV ONE ×2 (13:48)
[2022-03-23] MEDS ORDERED: DOPAMINE 400MG/250ML PREMIX 250 ML IV ONE (14:33)
[2022-03-23] MEDS ORDERED: CALCIUM CHLORIDE 1GM/10ML SYR IV ONE (15:03)
[2022-03-23] MEDS ORDERED: MORPHINE SULFATE 2 MG/ML CPJ (NOT FOR IM USE) IV PRN (15:30)
[2022-03-23] MEDS ORDERED: SODIUM BICARBONATE 8.4% 1 MEQ/ML 50ML SYR IV NR (16:15)
[2022-03-23] MEDS ORDERED: SODIUM CHLORIDE 0.9% 1,000 ML IV ONE (16:15)
[2022-03-23 16:40] LABS: BG BASE EXCESS -5.1 mmol/L (-2.0-2.0); BG CARBOXYHEMOGLOBIN 0.8 % (0.5-1.5); BG DEOXYHEMOGLOBIN 0.6 % (0.0-5.0); BG FRACTION INSPIRED OXYGEN 100; BG HCO3 ACT 21.3 mmol/L (22.0-26.0); BG METHEMOGLOBIN 0.3 % (0.0-1.5); BG OXYGEN SATURATION 99.4 % (92.0-98.5); BG OXYHEMOGLOBIN 98.3 % (94.0-97.0); BG PCO2 45.4 mmHg (35.0-45.0); BG SAMPLE SITE RIGHT RADIAL; BG TOTAL HEMOGLOBIN 11.9 g/dL (12.0-18.0); BG VENT MODE VENT - AC
[2022-03-23 17:10] LABS: BASOPHILS % 0.5 % (0.0-2.0); HEMATOCRIT. 42.6 % (42.0-52.0); HEMOGLOBIN. 13.1 g/dL (14.0-18.0); LYMPHOCYTES % 14.1 % (20.0-50.0); MEAN CORPUSCULAR HEMOGLOBIN 30.6 pg (28.0-32.0); MEAN CORPUSCULAR VOLUME 99.8 fL (80.0-94.0); MEAN PLATELET VOLUME 7.8 fl (7.4-10.4); NEUTROPHILS % 79.4 % (40.0-76.0); PLATELET 514 x1000/uL (130-400); RED BLOOD CELL COUNT 4.27 mill/uL (4.7-6.1); RED CELL DISTRIBUTION WIDTH 18.7 % (11.6-14.6)
[2022-03-23] MEDS: PHENYLEPHRINE 50 MG in DEXTROSE 5% WATER 250 ML IV PRN ×2 (18:12→22:35)
[2022-03-23] MEDS ORDERED: DOPAMINE 400MG/250ML PREMIX 250 ML IV PRN (18:15)
[2022-03-23] MEDS ORDERED: FENTANYL 2500MCG/250ML PMX 250 ML IV PRN (20:00)
[2022-03-24] VITALS (88 sets, daily range): BP systolic 65–128; BP diastolic 50–90
[2022-03-24] MEDS: IPRATROPIUM BROMIDE (0.02%) 0.5MG/2.5ML NEB HHN SCH ×3 (02:03→12:56)
[2022-03-24] MEDS: PHENYLEPHRINE 100 MG in DEXT 5% WATER 240 ML IV PRN ×3 (03:56→21:33)
[2022-03-24] MEDS: PIPERACILLIN/TAZOBACTAM 3.375 G in DEXTROSE 5% WATER 50 ML IV SCH ×3 (05:12→21:32)
[2022-03-24 05:17] LABS: BASOPHILS % 0.3 % (0.0-2.0); EOSINOPHILS % 0.2 % (0.0-5.0); HEMATOCRIT. 36.9 % (42.0-52.0); HEMOGLOBIN. 11.8 g/dL (14.0-18.0); MEAN CORPUSCULAR HEMOGLOBIN 29.9 pg (28.0-32.0); MEAN CORPUSCULAR VOLUME 93.1 fL (80.0-94.0); MEAN PLATELET VOLUME 8.3 fl (7.4-10.4); MONOCYTES % 3.7 % (2.0-8.0); NEUTROPHILS % 87.8 % (40.0-76.0); PLATELET 530 x1000/uL (130-400); RED BLOOD CELL COUNT 3.97 mill/uL (4.7-6.1); RED CELL DISTRIBUTION WIDTH 17.7 % (11.6-14.6)
[2022-03-24 05:30] LABS: CHLORIDE 110 mEq/L (98-107)
[2022-03-24 05:34] LABS: PHOSPHORUS 3.9 mg/dL (2.5-4.9)
[2022-03-24] MEDS: LEVOTHYROXINE SODIUM 25MCG TABLET PO SCH (05:40)
[2022-03-24] MEDS: CITRIC ACID/SODIUM CITRATE SOLN 15ML UDC PO SCH ×4 (09:00→17:32)
[2022-03-24] MEDS: PANTOPRAZOLE SODIUM 40 MG/VIAL IV SCH (09:01)
[2022-03-24] MEDS: CARVEDILOL 3.125 MG TABLET PO SCH ×2 (09:03→21:32)
[2022-03-24] MEDS: ZINC SULFATE 220 MG ( 50 ) CAPSULE PO SCH (09:03)
[2022-03-24 10:43] LABS: BG BASE EXCESS -0.7 mmol/L (-2.0-2.0); BG CARBOXYHEMOGLOBIN 1.1 % (0.5-1.5); BG DEOXYHEMOGLOBIN 0.7 % (0.0-5.0); BG HCO3 ACT 22.3 mmol/L (22.0-26.0); BG METHEMOGLOBIN 0.1 % (0.0-1.5); BG OXYGEN SATURATION 99.3 % (92.0-98.5); BG OXYHEMOGLOBIN 98.1 % (94.0-97.0); BG PCO2 31.6 mmHg (35.0-45.0); BG PH 7.466 (7.350-7.450); BG PO2 219.9 mmHg (75.0-100.0); BG SAMPLE SITE RIGHT RADIAL; BG TOTAL HEMOGLOBIN 12.9 g/dL (12.0-18.0); BG VENT MODE VENT - AC
[2022-03-24] MEDS ORDERED: SODIUM CHLORIDE 0.9% 250 ML IV ONE (15:30)
[2022-03-24] MEDS: DEXT 5%/0.45% NACL 1000ML 1,000 ML IV SCH (19:32)
[2022-03-25] VITALS (86 sets, daily range): BP systolic 88–134; BP diastolic 58–92
[2022-03-25] MEDS: IPRATROPIUM BROMIDE (0.02%) 0.5MG/2.5ML NEB HHN SCH ×4 (01:27→20:17)
[2022-03-25 04:51] LABS: BASOPHILS % 0.1 % (0.0-2.0); EOSINOPHILS % 0.5 % (0.0-5.0); HEMATOCRIT. 30.7 % (42.0-52.0); HEMOGLOBIN. 10.1 g/dL (14.0-18.0); LYMPHOCYTES % 8.2 % (20.0-50.0); MEAN CORPUSCULAR HEMOGLOBIN 29.9 pg (28.0-32.0); MEAN CORPUSCULAR VOLUME 90.9 fL (80.0-94.0); MEAN PLATELET VOLUME 7.4 fl (7.4-10.4); MONOCYTES % 3.1 % (2.0-8.0); NEUTROPHILS % 88.1 % (40.0-76.0); PLATELET 299 x1000/uL (130-400); RED BLOOD CELL COUNT 3.37 mill/uL (4.7-6.1); RED CELL DISTRIBUTION WIDTH 17.7 % (11.6-14.6)
[2022-03-25 05:12] LABS: CHLORIDE 103 mEq/L (98-107)
[2022-03-25] MEDS: LEVOTHYROXINE SODIUM 25MCG TABLET PO SCH (05:55)
[2022-03-25] MEDS: PIPERACILLIN/TAZOBACTAM 3.375 G in DEXTROSE 5% WATER 50 ML IV SCH ×3 (05:55→21:14)
[2022-03-25] MEDS: PHENYLEPHRINE 100 MG in DEXT 5% WATER 240 ML IV PRN ×2 (08:27→19:39)
[2022-03-25 08:58] LABS: BG BASE EXCESS -1.5 mmol/L (-2.0-2.0); BG CARBOXYHEMOGLOBIN 0.5 % (0.5-1.5); BG DEOXYHEMOGLOBIN 1.6 % (0.0-5.0); BG HCO3 ACT 21.7 mmol/L (22.0-26.0); BG METHEMOGLOBIN 0.3 % (0.0-1.5); BG OXYGEN SATURATION 98.4 % (92.0-98.5); BG OXYHEMOGLOBIN 97.6 % (94.0-97.0); BG PCO2 31.5 mmHg (35.0-45.0); BG PH 7.457 (7.350-7.450); BG PO2 125.5 mmHg (75.0-100.0); BG SAMPLE SITE RIGHT RADIAL; BG TOTAL HEMOGLOBIN 10.8 g/dL (12.0-18.0); BG VENT MODE VENT - AC
[2022-03-25] MEDS: CITRIC ACID/SODIUM CITRATE SOLN 15ML UDC PO SCH ×3 (09:01→18:11)
[2022-03-25] MEDS: PANTOPRAZOLE SODIUM 40 MG/VIAL IV SCH (09:01)
[2022-03-25] MEDS: CARVEDILOL 3.125 MG TABLET PO SCH ×2 (09:01→21:00)
[2022-03-25] MEDS: ZINC SULFATE 220 MG ( 50 ) CAPSULE PO SCH (09:01)
[2022-03-25 13:21] LABS: BG BASE EXCESS -1.5 mmol/L (-2.0-2.0); BG CARBOXYHEMOGLOBIN 0.6 % (0.5-1.5); BG DEOXYHEMOGLOBIN 1.5 % (0.0-5.0); BG FRACTION INSPIRED OXYGEN 40; BG HCO3 ACT 21.6 mmol/L (22.0-26.0); BG METHEMOGLOBIN 0.3 % (0.0-1.5); BG OXYGEN SATURATION 98.5 % (92.0-98.5); BG OXYHEMOGLOBIN 97.6 % (94.0-97.0); BG PCO2 31.2 mmHg (35.0-45.0); BG PH 7.459 (7.350-7.450); BG PO2 121.8 mmHg (75.0-100.0); BG SAMPLE SITE RIGHT RADIAL; BG TOTAL HEMOGLOBIN 10.8 g/dL (12.0-18.0); BG VENT MODE VENT - CPAP
[2022-03-25] MEDS ORDERED: [UNRECOGNIZED DRUG - REMARK] XX SCH (14:15)
[2022-03-25] MEDS: DEXT 5%/0.45% NACL 1000ML 1,000 ML IV SCH (19:39)
[2022-03-26] VITALS (92 sets, daily range): BP systolic 83–119; BP diastolic 54–81
[2022-03-26] MEDS: IPRATROPIUM BROMIDE (0.02%) 0.5MG/2.5ML NEB HHN SCH ×2 (01:00→07:47)
[2022-03-26] MEDS: LEVOTHYROXINE SODIUM 25MCG TABLET PO SCH (05:42)
[2022-03-26] MEDS: PIPERACILLIN/TAZOBACTAM 3.375 G in DEXTROSE 5% WATER 50 ML IV SCH ×3 (05:42→21:57)
[2022-03-26 05:43] LABS: BASOPHILS % 0.2 % (0.0-2.0); EOSINOPHILS % 0.9 % (0.0-5.0); LYMPHOCYTES % 8.9 % (20.0-50.0); MEAN CORPUSCULAR HEMOGLOBIN 30.5 pg (28.0-32.0); MEAN PLATELET VOLUME 7.9 fl (7.4-10.4); MONOCYTES % 2.4 % (2.0-8.0); NEUTROPHILS % 87.6 % (40.0-76.0); PLATELET 295 x1000/uL (130-400); RED CELL DISTRIBUTION WIDTH 16.9 % (11.6-14.6)
[2022-03-26 05:47] LABS: CHLORIDE 103 mEq/L (98-107)
[2022-03-26 05:54] LABS: PHOSPHORUS 4.3 mg/dL (2.5-4.9)
[2022-03-26] MEDS: CARVEDILOL 3.125 MG TABLET PO SCH ×2 (09:16→21:00)
[2022-03-26] MEDS: ZINC SULFATE 220 MG ( 50 ) CAPSULE PO SCH (09:16)
[2022-03-26] MEDS: CITRIC ACID/SODIUM CITRATE SOLN 15ML UDC PO SCH ×3 (09:16→16:57)
[2022-03-26] MEDS: PANTOPRAZOLE SODIUM 40 MG/VIAL IV SCH (09:16)
[2022-03-26] MEDS ORDERED: IPRATROPIUM BROMIDE (0.02%) 0.5MG/2.5ML NEB HHN PRN (10:15)
[2022-03-26] MEDS: MIDODRINE HCL 5MG TABLET PO SCH ×3 (10:43→16:57)
[2022-03-26] MEDS ORDERED: MAGNESIUM 2 G PREMIX 50 ML IV NR (11:00)
[2022-03-26] MEDS ORDERED: POTASSIUM CHLORIDE INJ 40 MEQ in DEXT 5% WATER 250 ML IV NR (11:00)
[2022-03-26] MEDS: FUROSEMIDE 40MG/4ML VIAL IVP SCH (13:32)
[2022-03-27] VITALS (94 sets, daily range): BP systolic 89–114; BP diastolic 22–82
[2022-03-27] MEDS: LEVOTHYROXINE SODIUM 25MCG TABLET PO SCH (06:14)
[2022-03-27] MEDS: PIPERACILLIN/TAZOBACTAM 3.375 G in DEXTROSE 5% WATER 50 ML IV SCH ×3 (06:14→22:19)
[2022-03-27 06:51] LABS: BASOPHILS % 0.2 % (0.0-2.0); EOSINOPHILS % 1.2 % (0.0-5.0); HEMATOCRIT. 29.5 % (42.0-52.0); HEMOGLOBIN. 9.8 g/dL (14.0-18.0); MEAN CORPUSCULAR HEMOGLOBIN 30.5 pg (28.0-32.0); MEAN CORPUSCULAR VOLUME 91.5 fL (80.0-94.0); MEAN PLATELET VOLUME 8.4 fl (7.4-10.4); MONOCYTES % 2.7 % (2.0-8.0); NEUTROPHILS % 85.9 % (40.0-76.0); PLATELET 144 x1000/uL (130-400); RED BLOOD CELL COUNT 3.23 mill/uL (4.7-6.1); RED CELL DISTRIBUTION WIDTH 17.3 % (11.6-14.6)
[2022-03-27 07:22] LABS: CHLORIDE 106 mEq/L (98-107)
[2022-03-27] MEDS ORDERED: POTASSIUM CHLORIDE INJ 40 MEQ in DEXT 5% WATER 250 ML IV ONE (07:30)
[2022-03-27] MEDS: DEXT 5%/0.9% NACL 1,000 ML IV SCH (08:35)
[2022-03-27] MEDS: KCL 20MEQ/100ML X 2 FOR TOTAL KCL 40MEQ/200ML IV SCH ×2 (08:35→11:07)
[2022-03-27] MEDS: ZINC SULFATE 220 MG ( 50 ) CAPSULE PO SCH (08:36)
[2022-03-27] MEDS: CARVEDILOL 3.125 MG TABLET PO SCH ×2 (08:36→21:00)
[2022-03-27] MEDS: CITRIC ACID/SODIUM CITRATE SOLN 15ML UDC PO SCH ×3 (08:36→16:47)
[2022-03-27] MEDS: PANTOPRAZOLE SODIUM 40 MG/VIAL IV SCH (08:36)
[2022-03-27] MEDS: FUROSEMIDE 40MG/4ML VIAL IVP SCH (08:36)
[2022-03-27] MEDS: MIDODRINE HCL 5MG TABLET PO SCH ×3 (08:36→16:47)
[2022-03-28] VITALS (86 sets, daily range): BP systolic 83–152; BP diastolic 49–114
[2022-03-28] MEDS: DEXT 5%/0.9% NACL 1,000 ML IV SCH (04:18)
[2022-03-28 05:28] LABS: BASOPHILS % 0.7 % (0.0-2.0); EOSINOPHILS % 1.8 % (0.0-5.0); HEMATOCRIT. 27.8 % (42.0-52.0); HEMOGLOBIN. 9.4 g/dL (14.0-18.0); LYMPHOCYTES % 12.5 % (20.0-50.0); MEAN CORPUSCULAR HEMOGLOBIN 30.5 pg (28.0-32.0); MEAN CORPUSCULAR VOLUME 90.4 fL (80.0-94.0); MEAN PLATELET VOLUME 8.1 fl (7.4-10.4); MONOCYTES % 2.8 % (2.0-8.0); NEUTROPHILS % 82.2 % (40.0-76.0); PLATELET 279 x1000/uL (130-400); RED BLOOD CELL COUNT 3.07 mill/uL (4.7-6.1); RED CELL DISTRIBUTION WIDTH 17.3 % (11.6-14.6)
[2022-03-28 05:32] LABS: PHOSPHORUS 4.2 mg/dL (2.5-4.9)
[2022-03-28] MEDS: PIPERACILLIN/TAZOBACTAM 3.375 G in DEXTROSE 5% WATER 50 ML IV SCH ×3 (06:05→21:07)
[2022-03-28] MEDS: LEVOTHYROXINE SODIUM 25MCG TABLET PO SCH (06:05)
[2022-03-28] MEDS: FUROSEMIDE 40MG/4ML VIAL IVP SCH (09:51)
[2022-03-28] MEDS: CITRIC ACID/SODIUM CITRATE SOLN 15ML UDC PO SCH ×3 (09:51→17:24)
[2022-03-28] MEDS: PANTOPRAZOLE SODIUM 40 MG/VIAL IV SCH (09:51)
[2022-03-28] MEDS: POTASSIUM CHLORIDE 20MEQ/PACKET PO SCH (09:51)
[2022-03-28] MEDS: ZINC SULFATE 220 MG ( 50 ) CAPSULE PO SCH (09:52)
[2022-03-28] MEDS: CARVEDILOL 3.125 MG TABLET PO SCH ×2 (09:52→20:37)
[2022-03-28] MEDS: MIDODRINE HCL 5MG TABLET PO SCH ×3 (09:52→17:25)
[2022-03-29] VITALS (84 sets, daily range): BP systolic 84–123; BP diastolic 53–82
[2022-03-29 04:47] LABS: CHLORIDE 108 mEq/L (98-107)
[2022-03-29 05:00] LABS: PHOSPHORUS 4.2 mg/dL (2.5-4.9)
[2022-03-29 05:01] LABS: EOSINOPHILS % 2.2 % (0.0-5.0); HEMATOCRIT. 28.7 % (42.0-52.0); HEMOGLOBIN. 9.3 g/dL (14.0-18.0); LYMPHOCYTES % 13.4 % (20.0-50.0); MEAN CORPUSCULAR HEMOGLOBIN 29.9 pg (28.0-32.0); MEAN CORPUSCULAR VOLUME 92.3 fL (80.0-94.0); MEAN PLATELET VOLUME 8.3 fl (7.4-10.4); MONOCYTES % 3.3 % (2.0-8.0); NEUTROPHILS % 80.1 % (40.0-76.0); PLATELET 261 x1000/uL (130-400); RED BLOOD CELL COUNT 3.11 mill/uL (4.7-6.1); RED CELL DISTRIBUTION WIDTH 17.7 % (11.6-14.6)
[2022-03-29] MEDS: LEVOTHYROXINE SODIUM 25MCG TABLET PO SCH (05:38)
[2022-03-29] MEDS: PIPERACILLIN/TAZOBACTAM 3.375 G in DEXTROSE 5% WATER 50 ML IV SCH ×2 (05:38→14:28)
[2022-03-29] MEDS: FUROSEMIDE 40MG/4ML VIAL IVP SCH (08:24)
[2022-03-29] MEDS: PANTOPRAZOLE SODIUM 40 MG/VIAL IV SCH (08:24)
[2022-03-29] MEDS: MIDODRINE HCL 5MG TABLET PO SCH ×3 (08:24→17:19)
[2022-03-29] MEDS: CITRIC ACID/SODIUM CITRATE SOLN 15ML UDC PO SCH ×3 (08:24→17:19)
[2022-03-29] MEDS: ZINC SULFATE 220 MG ( 50 ) CAPSULE PO SCH (08:24)
[2022-03-29] MEDS: POTASSIUM CHLORIDE 20MEQ/PACKET PO SCH (08:24)
[2022-03-29] MEDS: CARVEDILOL 3.125 MG TABLET PO SCH ×2 (08:24→20:28)
[2022-03-29] MEDS ORDERED: POTASSIUM CHLORIDE 20MEQ TABLET SR PO NR (09:30)
== END 2022-03-29 22:00 | DRG 853 ==
LOC: 6WST 22:45 → MICUSO 03-23 15:30
PROVIDERS: ADMIT Internal Medicine Nephrology; ATTEND Internal Medicine Nephrology
PROC: 0T7D8ZZ Dilation of Urethra, Via Natural or Artificial Opening Endoscopic (ICD-10-PCS; 2022-03-22)
PROC: 0DTF0ZZ Resection of Right Large Intestine, Open Approach (ICD-10-PCS; principal; 2022-03-23)
PROC: 0DBU0ZZ Excision of Omentum, Open Approach (ICD-10-PCS; 2022-03-23)
PROC: 05H633Z Insertion of Infusion Device into Left Subclavian Vein, Percutaneous Approach (ICD-10-PCS; 2022-03-23)
PROC: 5A1945Z Respiratory Ventilation, 24-96 Consecutive Hours (ICD-10-PCS; 2022-03-23)
PROC: 0BH17EZ Insertion of Endotracheal Airway into Trachea, Via Natural or Artificial Opening (ICD-10-PCS; 2022-03-23)
PROC: 30233N1 Transfusion of Nonautologous Red Blood Cells into Peripheral Vein, Percutaneous Approach (ICD-10-PCS; 2022-03-23)
DX: A41.9 Sepsis, unspecified organism (principal); D65 Disseminated intravascular coagulation [defibrination syndrome]; E43 Unspecified severe protein-calorie malnutrition; G92.8 Other toxic encephalopathy; R65.21 Severe sepsis with septic shock; J96.00 Acute respiratory failure, unspecified whether with hypoxia or hypercapnia; R57.1 Hypovolemic shock; N39.0 Urinary tract infection, site not specified; E87.20 Acidosis, unspecified; D61.818 Other pancytopenia; E87.1 Hypo-osmolality and hyponatremia; I42.9 Cardiomyopathy, unspecified; K56.51 Intestinal adhesions [bands], with partial obstruction; N17.9 Acute kidney failure, unspecified; R64 Cachexia; Z20.822 Contact with and (suspected) exposure to COVID-19; Z66 Do not resuscitate; E16.2 Hypoglycemia, unspecified; E87.6 Hypokalemia; E83.39 Other disorders of phosphorus metabolism; E83.42 Hypomagnesemia; E03.9 Hypothyroidism, unspecified; N35.919 Unspecified urethral stricture, male, unspecified site; R62.7 Adult failure to thrive; D50.0 Iron deficiency anemia secondary to blood loss (chronic); R19.00 Intra-abdominal and pelvic swelling, mass and lump, unspecified site; I50.9 Heart failure, unspecified; I11.0 Hypertensive heart disease with heart failure; J44.9 Chronic obstructive pulmonary disease, unspecified; Z86.711 Personal history of pulmonary embolism; Z86.718 Personal history of other venous thrombosis and embolism; Z87.891 Personal history of nicotine dependence; Z91.81 History of falling; Z59.00 Homelessness unspecified; Z68.26 Body mass index [BMI] 26.0-26.9, adult; Z95.828 Presence of other vascular implants and grafts
CPT/HCPCS: 36415; 36600; 71045; 74021; 74177; 76000; 80048; 80053; 82375; 82805; 82962; 83735; 84100; 84484; 85025; 86850; 86900; 86920; 87426; 88307; 92610; 93005; 94002; 94003; 94640; A6261; C1751; C1758; C1769; C9113; J0330; J1100; J1265; J1940; J2250; J2370; J2405; J2543; J2704; J2710; J3010; J3475; J3480; J3490; J7042; J7060; P9016; P9041; Q9967; A4315